=== PATIENT | female | born 1940 | race African-American/Black ===

== ENCOUNTER → 2021-02-14 | Outpatient (CLI) | payer MEDICARE, OTHER ==
[~2021-02-14] MED LIST: AMLODIPINE BESYL5 MG PO; LANTUS SOL100 UNIT/1 SQ; LOSARTAN-HCTZ1 EAC2 PO; OMEPRAZOLE20 MG PO; REMERON15 MG PO
== END ==
LOC: RAD 02-13 08:00 → EDBD 07:32 → RAD 08:00
DX: R10.84 Generalized abdominal pain (principal); K21.9 Gastro-esophageal reflux disease without esophagitis; K31.7 Polyp of stomach and duodenum; K31.89 Other diseases of stomach and duodenum
CPT/HCPCS: 74246

== ENCOUNTER → 2021-04-01 | Day surgery (SDC) | payer MEDICARE, OTHER | END | disposition home or self-care (01) | LOC: OR 07:31 | DX: Z12.11 Encounter for screening for malignant neoplasm of colon (principal); K57.30 Diverticulosis of large intestine without perforation or abscess without bleeding; K64.0 First degree hemorrhoids; K29.50 Unspecified chronic gastritis without bleeding; K31.7 Polyp of stomach and duodenum; K21.00 Gastro-esophageal reflux disease with esophagitis, without bleeding; E11.9 Type 2 diabetes mellitus without complications; I10 Essential (primary) hypertension; R63.4 Abnormal weight loss; Z68.20 Body mass index [BMI] 20.0-20.9, adult; Z79.4 Long term (current) use of insulin; Z79.899 Other long term (current) drug therapy | CPT/HCPCS: 43239; G0121; 82962; 88342; J2704; J7040 ==

== ENCOUNTER → 2021-05-16 | Outpatient (CLI) | payer MEDICARE, OTHER | LOC: CT 07:27 | DX: R63.4 Abnormal weight loss (principal) | CPT/HCPCS: 36415; 82565; 84520; Q9967 ==

== ENCOUNTER 2022-04-28 12:30 | Observation (INO) | payer MEDICARE, OTHER ==
[~2022-04-28] VITALS: Ht 170.2 cm; Wt 68.0 kg
[2022-04-28 14:38] LABS: RED BLOOD COUNT 3.72 M/UL (4.00-5.10); WHITE BLOOD COUNT 4.2 K/UL (4.5-11.0)
[2022-04-28 15:01] LABS: BUN/CREATININE RATIO 27 (0-10)
[2022-04-28] MEDS ORDERED: CHLORPROMAZINE100 MG PO (17:52)
[2022-04-28] MEDS ORDERED: CYPROHEPTADINE H4 MG PO (17:52)
[2022-04-28] MEDS ORDERED: [UNRECOGNIZED DRUG - OTHER] PO (17:53)
[2022-04-28] MEDS ORDERED: TRIHEXYPHENIDYL2 MG PO (17:53)
[2022-04-29 07:25] LABS: BUN/CREATININE RATIO 19 (0-10)
[2022-04-29 07:34] LABS: HEMOGLOBIN 11.6 gm/dl (12.3-15.3); RED BLOOD COUNT 3.9 M/UL (4.00-5.10)
== END 2022-04-29 17:13 | disposition home or self-care (01) ==
LOC: ER1 12:30 → MED SURG 4 17:21 → CDU 17:21 → MED SURG 4 04-29 05:58
PROVIDERS: Physician Assistant; ADMIT Internal Medicine
DX: E86.0 Dehydration (principal); E87.1 Hypo-osmolality and hyponatremia; E86.1 Hypovolemia; E11.9 Type 2 diabetes mellitus without complications; I10 Essential (primary) hypertension; K21.9 Gastro-esophageal reflux disease without esophagitis; E46 Unspecified protein-calorie malnutrition; Z68.23 Body mass index [BMI] 23.0-23.9, adult; Z79.4 Long term (current) use of insulin; Z79.899 Other long term (current) drug therapy
CPT/HCPCS: 36415; 70450; 70551; 71045; 80053; 81001; 82550; 82553; 82607; 82962; 83036; 83735; 83880; 83930; 84439; 84443; 84484; 84550; 85025; 85652; 87086; 93005; 96372; 96374; 97116; 97161; 97165; 99285; G0378; J1650; J2405; J3420